=== PATIENT | male | born 1960 | race Hispanic/Latino ===

== ENCOUNTER → 2017-11-29 | Outpatient (CLI) | payer OTHER ==
[~2017-11-29] MED LIST: ASPI-555 PO; CETI10TA57 PO; GABA-531 PO; IBUP-2070 PO; INVOK100TB PO; ISOS30TA6 PO; LOSA1TAB54 PO; METF10004 PO; NITR0.4T SL; PANT40TA25 PO; SERT25TA5 PO; TRAM50TA4 PO
== END | disposition home or self-care (01) ==
LOC: OIH 16:25
PROVIDERS: ATTEND Family Medicine
DX: S09.90XA Unspecified injury of head, initial encounter (principal); X58.XXXA Exposure to other specified factors, initial encounter; Y93.89 Activity, other specified; Y92.89 Other specified places as the place of occurrence of the external cause; Y99.8 Other external cause status
CPT/HCPCS: 70220; 70260

== ENCOUNTER 2018-02-10 13:43 | Inpatient (IN) | payer OTHER ==
[~2018-02-10] VITALS: Ht 172.7 cm; Wt 90.9 kg
[~2018-02-10 13:43] MED LIST changes: -IBUP-2070 PO; -INVOK100TB PO; -ISOS30TA6 PO; -PANT40TA25 PO; -SERT25TA5 PO
[2018-02-10 14:10] LABS: BASOPHILS % (AUTO) 0.7 % (0.0-5.0); EOSINOPHILS % (AUTO) 1.5 % (0.0-8.0); HEMATOCRIT 44.8 % (42-54); LYMPHOCYTES % (AUTO) 6.4 % (21.0-51.0); MEAN CORPUSCULAR HEMOGLOBIN 30.5 pg (27.0-33.0); MEAN CORPUSCULAR HGB CONC 35.6 g/dL (32.0-36.0); MEAN CORPUSCULAR VOLUME 85.7 fL (79-99); MONOCYTES % (AUTO) 6.9 % (3.0-13.0); NEUTROPHILS % (AUTO) 84.5 % (40.0-77.0); RED BLOOD CELL COUNT(AUTO) 5.22 MIL/uL (4.50-6.20); RED CELL DISTRIBUTION WIDTH 15.3 % (11.0-15.5)
[2018-02-10 14:16] LABS: PLATELET COUNT (AUTO) 1084 K/uL (130-400)
[2018-02-10 14:23] LABS: CREATININE 0.8 mg/dL (0.5-1.5); POTASSIUM 3.3 mmol/L (3.5-5.1)
[2018-02-10 14:24] LABS: INR 1.05 (0.85-1.15); PARTIAL THROMBOPLASTIN TIME 28.4 SEC (26.3-35.5)
[2018-02-10 14:37] LABS: BILIRUBIN,TOTAL 0.9 mg/dL (0.2-1.0); TOTAL PROTEIN, SERUM 7.5 g/dL (6.0-8.3)
[2018-02-10 15:02] LABS: APPEARANCE,URINE Cloudy (CLEAR); BILIRUBIN,URINE Negative (NEGATIVE); COLOR,URINE Dark Yellow (YELLOW); GLUCOSE, URINE (UA) >=1000 mg/dL (NEGATIVE); KETONES,URINE 15 mg/dL (NEGATIVE); LEUKOCYTE ESTERASE ,URINE Negative (NEGATIVE); NITRATE,URINE Negative (NEGATIVE); OCCULT BLOOD,URINE Negative (NEGATIVE); PROTEIN,URINE POS 2+ (NEGATIVE)
[2018-02-10 15:16] LABS: BACTERIA,URINE Rare /HPF (None Seen); RBC,URINE None Seen /HPF (0-1); WBC,URINE None Seen /HPF (0-1); YEAST,URINE BUDDING Rare /HPF (None Seen)
[2018-02-10] MEDS ORDERED: MORPHINE SULFATE 4 MG/1ML SYG ONE (16:30)
[2018-02-10] MEDS ORDERED: ACETAMINOPHEN 325 MG TAB ONE (19:43)
[2018-02-10] MEDS ORDERED: MORPHINE SULFATE 2 MG/ML 1ML SYG ONE (19:43)
[2018-02-10 20:59] LABS: CREATINE KINASE MB 1.3 ng/mL (0.5-3.6)
[2018-02-11 00:15] VITALS: BP 124/83
[2018-02-11] MEDS ORDERED: PANT40TA25 PO (00:43)
[2018-02-11] MEDS ORDERED: INVOK100TB PO (00:43)
[2018-02-11] MEDS ORDERED: ISOS30TA6 PO (00:43)
[2018-02-11] MEDS ORDERED: IBUP-2070 PO (00:43)
[2018-02-11] MEDS ORDERED: SERT25TA5 PO (00:43)
[2018-02-11] MEDS ORDERED: PHARMACY COMMUNICATION MISC SCH (01:15)
[2018-02-11 04:00] VITALS: BP 134/86
[2018-02-11] MEDS ORDERED: ONDANSETRON HCL 4 MG/2 ML VIAL IVP PRN (04:00)
[2018-02-11] MEDS ORDERED: ACETAMINOPHEN 325 MG TAB PO PRN (04:00)
[2018-02-11] MEDS ORDERED: POTASSIUM CHLORIDE 10% ELIXIR 20 MEQ/15 ML UDCUP PO PRN (04:00)
[2018-02-11] MEDS ORDERED: DIPHENHYDRAMINE HCL 25 MG CAPSULE PO PRN (04:00)
[2018-02-11] MEDS ORDERED: GUAIFENESIN-DM 200/20 MG 10 ML PO PRN (04:00)
[2018-02-11] MEDS ORDERED: DEXTROSE 50%-WATER 50 ML DISP.SYRIN IV PRN (04:00)
[2018-02-11] MEDS ORDERED: MORPHINE SULFATE 2 MG/ML 1ML SYG IVP PRN ×2 (04:00)
[2018-02-11] MEDS ORDERED: GLUCAGON 1MG KIT 1 MG ML IM PRN (04:00)
[2018-02-11] MEDS ORDERED: POTASSIUM CHLORIDE 20MEQ/100ML 100 ML IV PRN (04:00)
[2018-02-11] MEDS ORDERED: CLONIDINE HCL 0.1 MG TABLET PO PRN (04:00)
[2018-02-11] MEDS ORDERED: NITROGLYCERIN 0.4 MG SL TAB SL PRN (04:00)
[2018-02-11] MEDS ORDERED: DiphenhydrAMINE HCL 50 MG/ML VIAL IM PRN (04:00)
[2018-02-11] MEDS ORDERED: LACTULOSE 20 GM/30 ML UDCUP PO PRN (04:00)
[2018-02-11] MEDS ORDERED: LIDOCAINE HCL-MPF 1% 2ML VIAL IVP PRN (04:00)
[2018-02-11] MEDS ORDERED: ZOLPIDEM TARTRATE 5 MG TAB PO PRN (04:00)
[2018-02-11 05:17] LABS: HEMATOCRIT 40.4 % (42-54); MEAN CORPUSCULAR HEMOGLOBIN 30.4 pg (27.0-33.0); MEAN CORPUSCULAR HGB CONC 35.2 g/dL (32.0-36.0); MEAN CORPUSCULAR VOLUME 86.2 fL (79-99); RED BLOOD CELL COUNT(AUTO) 4.68 MIL/uL (4.50-6.20); RED CELL DISTRIBUTION WIDTH 15.3 % (11.0-15.5); WHITE BLOOD COUNT (AUTO) 8.2 K/uL (4.8-10.8)
[2018-02-11 05:20] LABS: PLATELET COUNT (AUTO) 933 K/uL (130-400)
[2018-02-11 05:43] LABS: CARBON DIOXIDE 27 mmol/L (21-32); CHLORIDE 104 mmol/L (101-111); CREATINE KINASE MB 1.5 ng/mL (0.5-3.6); CREATINE KINASE, TOTAL 81 U/L (21-232); CREATININE 0.7 mg/dL (0.5-1.5); GLOMERULAR FILTR. RATE CALC 123 mL/min (>60); GLUCOSE,RANDOM 198 mg/dL (70-105); MYOGLOBIN 36 ng/mL (10-92); POTASSIUM 3.2 mmol/L (3.5-5.1); SODIUM SERUM 138 mmol/L (136-145); TROPONIN I < 0.04 ng/mL (0.00-0.06); UREA NITROGEN, BLOOD 15 mg/dL (7-18)
[2018-02-11] MEDS: TRAMADOL HCL 50 MG TABLET PO SCH ×3 (06:45→18:19)
[2018-02-11 08:00] VITALS: BP 131/76
[2018-02-11] MEDS: METFORMIN HCL 500 MG TABLET PO SCH (08:00)
[2018-02-11] MEDS: INSULIN HUMULIN R 100 UNIT/ML 3ML SQ SCH ×4 (08:02→21:21)
[2018-02-11] MEDS: SERTRALINE HCL 50 MG TABLET PO SCH (09:00)
[2018-02-11] MEDS: ASPIRIN 325MG EC TAB 325 MG TABLET.DR PO SCH (09:00)
[2018-02-11] MEDS: GABAPENTIN 300 MG CAPSULE PO SCH ×3 (09:00→21:22)
[2018-02-11] MEDS ORDERED: CETIRIZINE HCL 5 MG TABLET PO PRN (09:00)
[2018-02-11] MEDS: PANTOPRAZOLE SODIUM 40 MG TABLET.DR PO SCH (09:00)
[2018-02-11] MEDS: ISOSORBIDE MONO 30MG TAB SR PO SCH (09:00)
[2018-02-11] MEDS: **HM** INVOKANA 100MG PO SCH (09:00)
[2018-02-11] MEDS: LOSARTAN/HYDROCHLOROTHIAZIDE 50-12.5MG TABLET PO SCH (09:00)
[2018-02-11] MEDS: KETOROLAC TROMETHAMINE 30MG/ML IV PRN ×2 (11:56→21:23)
[2018-02-11 12:00] VITALS: BP 110/68
[2018-02-11 16:45] VITALS: BP 146/96
[2018-02-11 19:00] VITALS: BP 139/86
[2018-02-12] VITALS (7 sets, daily range): BP systolic 106–149; BP diastolic 60–90
[2018-02-12] MEDS: TRAMADOL HCL 50 MG TABLET PO SCH ×4 (00:45→18:45)
[2018-02-12] MEDS: KETOROLAC TROMETHAMINE 30MG/ML IV PRN (04:23)
[2018-02-12 05:34] LABS: BASOPHILS % (AUTO) 0.4 % (0.0-5.0); EOSINOPHILS % (AUTO) 2.4 % (0.0-8.0); HEMATOCRIT 39.2 % (42-54); LYMPHOCYTES % (AUTO) 25.3 % (21.0-51.0); MEAN CORPUSCULAR HEMOGLOBIN 30.3 pg (27.0-33.0); MEAN CORPUSCULAR HGB CONC 35.1 g/dL (32.0-36.0); MEAN CORPUSCULAR VOLUME 86.4 fL (79-99); MONOCYTES % (AUTO) 12.1 % (3.0-13.0); NEUTROPHILS % (AUTO) 59.8 % (40.0-77.0); NUCLEATED RED BLOOD CELLS 0.1 % (0.0-0.19); RED BLOOD CELL COUNT(AUTO) 4.54 MIL/uL (4.50-6.20); RED CELL DISTRIBUTION WIDTH 14.9 % (11.0-15.5); WHITE BLOOD COUNT (AUTO) 8.3 K/uL (4.8-10.8)
[2018-02-12 05:35] LABS: PLATELET COUNT (AUTO) 951 K/uL (130-400)
[2018-02-12 06:00] LABS: ALBUMIN 3.3 g/dL (3.5-5.0); BILIRUBIN,TOTAL 0.5 mg/dL (0.2-1.0); CREATININE 0.8 mg/dL (0.5-1.5); POTASSIUM 3.9 mmol/L (3.5-5.1); TOTAL PROTEIN, SERUM 6.7 g/dL (6.0-8.3)
[2018-02-12] MEDS: BISACODYL 5 MG TABLET.DR PO PRN ×2 (06:08→17:35)
[2018-02-12] MEDS: INSULIN HUMULIN R 100 UNIT/ML 3ML SQ SCH ×4 (06:10→21:44)
[2018-02-12] MEDS: **HM** INVOKANA 100MG PO SCH (09:00)
[2018-02-12] MEDS: ISOSORBIDE MONO 30MG TAB SR PO SCH (09:26)
[2018-02-12] MEDS: SERTRALINE HCL 50 MG TABLET PO SCH (09:26)
[2018-02-12] MEDS: PANTOPRAZOLE SODIUM 40 MG TABLET.DR PO SCH (09:26)
[2018-02-12] MEDS: LOSARTAN/HYDROCHLOROTHIAZIDE 50-12.5MG TABLET PO SCH (09:27)
[2018-02-12] MEDS: ASPIRIN 325MG EC TAB 325 MG TABLET.DR PO SCH (09:27)
[2018-02-12] MEDS: GABAPENTIN 300 MG CAPSULE PO SCH ×3 (09:27→21:41)
[2018-02-12] MEDS: ACETAMINOPHEN 325 MG TAB PO PRN (11:29)
[2018-02-12] MEDS ORDERED: ONDANSETRON HCL MDV 20ML 2 MG/ML VIAL ONE (17:33)
[2018-02-13] VITALS (21 sets, daily range): BP systolic 106–156; BP diastolic 66–100
[2018-02-13] MEDS: TRAMADOL HCL 50 MG TABLET PO SCH ×3 (01:38→16:06)
[2018-02-13] MEDS: INSULIN HUMULIN R 100 UNIT/ML 3ML SQ SCH ×4 (07:01→21:30)
[2018-02-13] MEDS: GABAPENTIN 300 MG CAPSULE PO SCH ×4 (09:00→20:26)
[2018-02-13] MEDS: **HM** INVOKANA 100MG PO SCH (09:00)
[2018-02-13] MEDS ORDERED: PROPOFOL 10 MG/ML 20ML VIAL IV ONE (09:19)
[2018-02-13 11:20] LABS: INR 1.05 (0.85-1.15)
[2018-02-13] MEDS ORDERED: MIDAZOLAM HCL 1 MG/ML 2ML VIAL ONE (15:02)
[2018-02-13] MEDS ORDERED: FENTANYL CITRATE PF 50 MCG/1 ML 2ML VIAL ONE (15:02)
[2018-02-13] MEDS: ACETAMINOPHEN 325 MG TAB PO PRN (16:05)
[2018-02-13] MEDS: ASPIRIN 325MG EC TAB 325 MG TABLET.DR PO SCH (16:06)
[2018-02-13] MEDS: SERTRALINE HCL 50 MG TABLET PO SCH (16:07)
[2018-02-13] MEDS: LOSARTAN/HYDROCHLOROTHIAZIDE 50-12.5MG TABLET PO SCH (16:07)
[2018-02-13] MEDS: PANTOPRAZOLE SODIUM 40 MG TABLET.DR PO SCH (16:07)
[2018-02-13] MEDS: ISOSORBIDE MONO 30MG TAB SR PO SCH (16:08)
[2018-02-13] MEDS ORDERED: PHARMACY COMMUNICATION MISC SCH (19:00)
[2018-02-13] MEDS ORDERED: HYDROXYUREA 500 MG CAP PO SCH (20:00)
[2018-02-13] MEDS ORDERED: ONDANSETRON HCL MDV 20ML 2 MG/ML VIAL ONE (20:33)
[2018-02-14] VITALS: BP 118/71
[2018-02-14] MEDS: TRAMADOL HCL 50 MG TABLET PO SCH ×3 (00:36→13:01)
[2018-02-14 04:00] VITALS: BP 119/76
[2018-02-14 04:54] LABS: BASOPHILS % (AUTO) 0.9 % (0.0-5.0); EOSINOPHILS % (AUTO) 2.8 % (0.0-8.0); HEMATOCRIT 38.2 % (42-54); LYMPHOCYTES % (AUTO) 22.7 % (21.0-51.0); MEAN CORPUSCULAR HEMOGLOBIN 30.4 pg (27.0-33.0); MEAN CORPUSCULAR HGB CONC 35.3 g/dL (32.0-36.0); MEAN CORPUSCULAR VOLUME 86.2 fL (79-99); MONOCYTES % (AUTO) 8.2 % (3.0-13.0); NEUTROPHILS % (AUTO) 65.4 % (40.0-77.0); RED BLOOD CELL COUNT(AUTO) 4.43 MIL/uL (4.50-6.20); WHITE BLOOD COUNT (AUTO) 8.8 K/uL (4.8-10.8)
[2018-02-14 05:09] LABS: ALBUMIN 3.2 g/dL (3.5-5.0); BILIRUBIN,TOTAL 0.5 mg/dL (0.2-1.0); CREATININE 0.7 mg/dL (0.5-1.5); POTASSIUM 3.4 mmol/L (3.5-5.1); TOTAL PROTEIN, SERUM 6.7 g/dL (6.0-8.3)
[2018-02-14 05:12] LABS: PLATELET COUNT (AUTO) 1005 K/uL (130-400)
[2018-02-14] MEDS: POTASSIUM CHLORIDE 20 MEQ ERTAB PO PRN ×2 (06:16→08:14)
[2018-02-14] MEDS: INSULIN HUMULIN R 100 UNIT/ML 3ML SQ SCH ×2 (06:18→11:30)
[2018-02-14] MEDS: GABAPENTIN 300 MG CAPSULE PO SCH ×2 (08:14→13:02)
[2018-02-14] MEDS: SERTRALINE HCL 50 MG TABLET PO SCH (08:15)
[2018-02-14] MEDS: LOSARTAN/HYDROCHLOROTHIAZIDE 50-12.5MG TABLET PO SCH (08:15)
[2018-02-14] MEDS: PANTOPRAZOLE SODIUM 40 MG TABLET.DR PO SCH (08:15)
[2018-02-14] MEDS: ISOSORBIDE MONO 30MG TAB SR PO SCH (08:15)
[2018-02-14] MEDS: ACETAMINOPHEN 325 MG TAB PO PRN (08:16)
[2018-02-14] MEDS: **HM** INVOKANA 100MG PO SCH (08:17)
[2018-02-14] MEDS: METFORMIN HCL 500 MG TABLET PO SCH (08:19)
[2018-02-14 08:25] VITALS: BP 111/73
[2018-02-14] MEDS ORDERED: FOLIC ACID 1 MG TABLET PO SCH (09:00)
[2018-02-14] MEDS ORDERED: ASPIRIN 81MG TAB.CHEW PO SCH (09:00)
[2018-02-14 12:00] VITALS: BP 110/70
[2018-02-14 16:00] VITALS: BP 129/69
== END 2018-02-14 17:42 | disposition home or self-care (01) | DRG 815 ==
LOC: EDH 13:43 → OBSVTOIN 17:32 → EDHIP 17:32 → 4BH 02-11 00:18
PROVIDERS: ADMIT Family Medicine; ATTEND Family Medicine
PROC: 07DR3ZX Extraction of Iliac Bone Marrow, Percutaneous Approach, Diagnostic (ICD-10-PCS; principal; 2018-02-13)
PROC: 0DB68ZX Excision of Stomach, Via Natural or Artificial Opening Endoscopic, Diagnostic (ICD-10-PCS; 2018-02-13)
DX: D47.3 Essential (hemorrhagic) thrombocythemia (principal); K56.7 Ileus, unspecified; E11.9 Type 2 diabetes mellitus without complications; I10 Essential (primary) hypertension; K80.20 Calculus of gallbladder without cholecystitis without obstruction; E78.5 Hyperlipidemia, unspecified; K31.89 Other diseases of stomach and duodenum; I25.10 Atherosclerotic heart disease of native coronary artery without angina pectoris; K21.9 Gastro-esophageal reflux disease without esophagitis; Z87.442 Personal history of urinary calculi
CPT/HCPCS: 36415; 38222; 71045; 74176; 77012; 78226; 80048; 80053; 81001; 82550; 82553; 82948; 83874; 84484; 85025; 85027; 85097; 85610; 85730; 87040; 87088; 87804; 88184; 88185; 88237; 88262; 88305; 88311; 88312; 88313; 88342; 88377; 93005; A9537; J1815; J1885; J2250; J2270; J2704; J3010; J3480; J3490; J7030

== ENCOUNTER 2018-04-12 21:30 | Emergency (ER) | payer OTHER ==
[~2018-04-12 21:30] MED LIST changes: +IBUP-2070 PO; +INVOK100TB PO; +ISOS30TA6 PO; +PANT40TA25 PO; +SERT25TA5 PO
[2018-04-12 22:27] LABS: BASOPHILS % (AUTO) 0.7 % (0.0-5.0); EOSINOPHILS % (AUTO) 1.4 % (0.0-8.0); HEMATOCRIT 43.8 % (42-54); MEAN CORPUSCULAR HEMOGLOBIN 34.6 pg (27.0-33.0); MEAN CORPUSCULAR HGB CONC 35.5 g/dL (32.0-36.0); MEAN CORPUSCULAR VOLUME 97.6 fL (79-99); NEUTROPHILS % (AUTO) 56.9 % (40.0-77.0); RED BLOOD CELL COUNT(AUTO) 4.49 MIL/uL (4.50-6.20); RED CELL DISTRIBUTION WIDTH 25.3 % (11.0-15.5); WHITE BLOOD COUNT (AUTO) 7.8 K/uL (4.8-10.8)
[2018-04-12 22:36] LABS: APPEARANCE,URINE Clear (CLEAR); BILIRUBIN,URINE Negative (NEGATIVE); COLOR,URINE Yellow (YELLOW); GLUCOSE, URINE (UA) >=1000 mg/dL (NEGATIVE); KETONES,URINE Negative (NEGATIVE); LEUKOCYTE ESTERASE ,URINE Negative (NEGATIVE); NITRATE,URINE Negative (NEGATIVE); OCCULT BLOOD,URINE Negative (NEGATIVE); PROTEIN,URINE Negative (NEGATIVE)
[2018-04-12 22:37] LABS: PLATELET COUNT (AUTO) 814 K/uL (130-400)
[2018-04-12 22:42] LABS: CREATININE 0.7 mg/dL (0.5-1.5); POTASSIUM 3.3 mmol/L (3.5-5.1)
[2018-04-12] MEDS ORDERED: MORPHINE SULFATE 4 MG/1ML SYG ONE (22:44)
[2018-04-12 22:46] LABS: ALBUMIN 4.2 g/dL (3.5-5.0); BILIRUBIN,TOTAL 0.8 mg/dL (0.2-1.0); TOTAL PROTEIN, SERUM 7.6 g/dL (6.0-8.3)
[2018-04-12] MEDS ORDERED: IOPAMIDOL-370 75 ML VIAL IV ONE (22:58)
[2018-04-12 23:10] LABS: BACTERIA,URINE None Seen /HPF (None Seen); RBC,URINE None Seen /HPF (0-1); SQUAMOUS EPITHELIAL CELL,UR Moderate /HPF (0-2); WBC,URINE None Seen /HPF (0-1)
[2018-04-13] MEDS ORDERED: POTASSIUM CHLORIDE 20 MEQ ERTAB PO ONE (01:04)
== END 2018-04-13 01:17 | disposition home or self-care (01) ==
LOC: EDH 21:30
DX: K80.20 Calculus of gallbladder without cholecystitis without obstruction (principal); E87.6 Hypokalemia; K57.90 Diverticulosis of intestine, part unspecified, without perforation or abscess without bleeding; I10 Essential (primary) hypertension; E78.5 Hyperlipidemia, unspecified; K21.9 Gastro-esophageal reflux disease without esophagitis; E11.9 Type 2 diabetes mellitus without complications; I25.10 Atherosclerotic heart disease of native coronary artery without angina pectoris; Z95.0 Presence of cardiac pacemaker; Z79.4 Long term (current) use of insulin
CPT/HCPCS: 36415; 74177; 80053; 81001; 82150; 83690; 85025; 93005; 96374; 99285; J2270; Q9967

== ENCOUNTER 2018-05-30 22:35 | Emergency (ER) | payer OTHER ==
[2018-05-30] MEDS ORDERED: LIDOCAINE/PRILOCAINE CREAM 5GM TUBE TP ONE (23:04)
== END 2018-05-30 23:18 | disposition home or self-care (01) ==
LOC: EDH 22:35
DX: L30.9 Dermatitis, unspecified (principal); K21.9 Gastro-esophageal reflux disease without esophagitis; I10 Essential (primary) hypertension; I25.10 Atherosclerotic heart disease of native coronary artery without angina pectoris; E78.5 Hyperlipidemia, unspecified; Z95.0 Presence of cardiac pacemaker
CPT/HCPCS: 99282; J3490

== ENCOUNTER 2018-09-01 16:10 | Emergency (ER) | payer OTHER ==
[~2018-09-01 16:10] MED LIST changes: +FOLI1TAB15 PO; -GABA-531 PO; +GLIP10TA9 PO; +HYDR500C2 PO; -IBUP-2070 PO; -LOSA1TAB54 PO; +LOSA50TA25 PO; +METF-446 PO; -METF10004 PO; -SERT25TA5 PO; -TRAM50TA4 PO
[2018-09-01] MEDS ORDERED: METO-408 PO (16:12)
[2018-09-01] MEDS ORDERED: AZIT250T9 PO (16:12)
[2018-09-01 16:49] LABS: BASOPHILS % (AUTO) 0.9 % (0.0-5.0); HEMATOCRIT 44.7 % (42-54); LYMPHOCYTES % (AUTO) 18.7 % (21.0-51.0); MEAN CORPUSCULAR HEMOGLOBIN 35.1 pg (27.0-33.0); MEAN CORPUSCULAR HGB CONC 34.7 g/dL (32.0-36.0); MEAN CORPUSCULAR VOLUME 101.2 fL (79-99); MONOCYTES % (AUTO) 7.5 % (3.0-13.0); NEUTROPHILS % (AUTO) 71.9 % (40.0-77.0); RED BLOOD CELL COUNT(AUTO) 4.42 MIL/uL (4.50-6.20); RED CELL DISTRIBUTION WIDTH 14.5 % (11.0-15.5); WHITE BLOOD COUNT (AUTO) 11.9 K/uL (4.8-10.8)
[2018-09-01 16:54] LABS: PLATELET COUNT (AUTO) 874 K/uL (130-400)
[2018-09-01 17:01] LABS: CREATININE 0.8 mg/dL (0.5-1.5); POTASSIUM 4.3 mmol/L (3.5-5.1)
[2018-09-01 17:03] LABS: APPEARANCE,URINE Clear (CLEAR); BILIRUBIN,URINE Negative (NEGATIVE); COLOR,URINE Yellow (YELLOW); GLUCOSE, URINE (UA) >=1000 mg/dL (NEGATIVE); KETONES,URINE Negative (NEGATIVE); LEUKOCYTE ESTERASE ,URINE Negative (NEGATIVE); NITRATE,URINE Negative (NEGATIVE); OCCULT BLOOD,URINE Negative (NEGATIVE); PH,URINE 5.5 (5.0-8.0); PROTEIN,URINE Negative (NEGATIVE); UROBILINOGEN,URINE 0.2 mg/dL (0.2-1.0)
[2018-09-01 17:06] LABS: ALBUMIN 3.7 g/dL (3.5-5.0); BILIRUBIN,TOTAL 0.5 mg/dL (0.2-1.0); TOTAL PROTEIN, SERUM 7.6 g/dL (6.0-8.3)
[2018-09-01 17:13] LABS: BACTERIA,URINE Rare /HPF (None Seen); RBC,URINE 0-1 /HPF (0-1); SQUAMOUS EPITHELIAL CELL,UR Rare /HPF (0-2); WBC,URINE 0-1 /HPF (0-1); YEAST,URINE BUDDING Rare /HPF (None Seen)
[2018-09-01] MEDS ORDERED: ONDANSETRON HCL 4 MG/2 ML VIAL ONE (17:26)
[2018-09-01] MEDS ORDERED: MORPHINE SULFATE 4 MG/1ML SYG ONE (17:27)
== END 2018-09-01 19:51 | disposition home or self-care (01) ==
LOC: EDH 16:10
DX: N50.812 Left testicular pain (principal); D47.3 Essential (hemorrhagic) thrombocythemia; I25.10 Atherosclerotic heart disease of native coronary artery without angina pectoris; E11.9 Type 2 diabetes mellitus without complications; K21.9 Gastro-esophageal reflux disease without esophagitis; E78.5 Hyperlipidemia, unspecified; I10 Essential (primary) hypertension; Z79.4 Long term (current) use of insulin; Z87.442 Personal history of urinary calculi
CPT/HCPCS: 36415; 74176; 76870; 80053; 81001; 85025; 96374; 96375; 99285; J2270; J2405

== ENCOUNTER → 2018-10-30 | Outpatient (CLI) | payer OTHER ==
[~2018-10-30] MED LIST changes: +AZIT250T9 PO
== END | disposition home or self-care (01) ==
LOC: OIH 15:20
PROVIDERS: ATTEND Family Medicine
DX: K80.20 Calculus of gallbladder without cholecystitis without obstruction (principal)
CPT/HCPCS: 72100

== ENCOUNTER → 2018-12-26 | Outpatient (CLI) | payer OTHER ==
[~2018-12-26] MED LIST changes: -LOSA50TA25 PO; +LOSA50TA64 PO
== END | disposition home or self-care (01) ==
LOC: RAH 12:48
PROVIDERS: ATTEND Internal Medicine Cardiovascular Disease
DX: R51 Headache (principal)
CPT/HCPCS: 70450

== ENCOUNTER → 2019-09-04 | Outpatient (CLI) | payer OTHER ==
[~2019-09-04] MED LIST changes: +IOHEXOL 350 MG/ML 100ML INFUS..BTL IV ONE
[2019-09-04 14:10] LABS: CREATININE 0.8 mg/dL (0.5-1.5)
== END | disposition home or self-care (01) ==
LOC: RAH 13:22
PROVIDERS: ATTEND Family Medicine
DX: I26.02 Saddle embolus of pulmonary artery with acute cor pulmonale (principal); K80.20 Calculus of gallbladder without cholecystitis without obstruction; I51.7 Cardiomegaly
CPT/HCPCS: 36415; 71275; 82565; 84520; Q9967

== ENCOUNTER → 2019-09-16 | Outpatient (CLI) | payer OTHER ==
[~2019-09-16] MED LIST changes: -IOHEXOL 350 MG/ML 100ML INFUS..BTL IV ONE
== END | disposition home or self-care (01) ==
LOC: RAH 08:33
PROVIDERS: ATTEND Family Medicine
DX: K80.20 Calculus of gallbladder without cholecystitis without obstruction (principal); K76.89 Other specified diseases of liver
CPT/HCPCS: 76700

== ENCOUNTER 2020-03-23 10:46 | Emergency (ER) | payer OTHER ==
[2020-03-23] MEDS ORDERED: DIAZEPAM 5 MG TABLET ONE (11:08)
[2020-03-23] MEDS ORDERED: LIDOCAINE 5% TOPICAL PATCH TP ONE (11:08)
== END 2020-03-23 12:14 | disposition home or self-care (01) ==
LOC: EDH 10:46
DX: M62.838 Other muscle spasm (principal); I25.10 Atherosclerotic heart disease of native coronary artery without angina pectoris; E11.9 Type 2 diabetes mellitus without complications; K21.9 Gastro-esophageal reflux disease without esophagitis; I10 Essential (primary) hypertension; E78.5 Hyperlipidemia, unspecified; Z87.891 Personal history of nicotine dependence

== ENCOUNTER 2020-12-09 09:16 | Emergency (ER) | payer OTHER ==
[~2020-12-09 09:16] MED LIST changes: -ASPI-555 PO; +ASPI-556 PO; -ISOS30TA6 PO; +ISOS30TA92 PO; -PANT40TA25 PO; +PANT40TA54 PO
[2020-12-09] MEDS ORDERED: DiphenhydrAMINE HCL 50 MG/ML VIAL ONE (09:33)
[2020-12-09] MEDS ORDERED: 0.9%NACL 1000ML 1,000 ML IV ONE (09:34)
[2020-12-09] MEDS ORDERED: KETOROLAC 15MG/ML VIAL (15MG/ML) ONE (09:34)
[2020-12-09 09:44] LABS: BASOPHILS % (AUTO) 0.8 % (0.0-5.0); EOSINOPHILS % (AUTO) 1.2 % (0.0-8.0); HEMATOCRIT 39.9 % (42-54); LYMPHOCYTES % (AUTO) 23.6 % (21.0-51.0); MEAN CORPUSCULAR HEMOGLOBIN 41.5 pg (27.0-33.0); MEAN CORPUSCULAR HGB CONC 36.1 g/dL (32.0-36.0); MONOCYTES % (AUTO) 9.3 % (3.0-13.0); NEUTROPHILS % (AUTO) 64.9 % (40.0-77.0); PLATELET COUNT (AUTO) 263 K/uL (130-400); RED BLOOD CELL COUNT(AUTO) 3.47 MIL/uL (4.50-6.20); RED CELL DISTRIBUTION WIDTH 13.1 % (11.0-15.5)
[2020-12-09 10:03] LABS: ALBUMIN 3.9 g/dL (3.5-5.0); BILIRUBIN,TOTAL 0.8 mg/dL (0.2-1.0); CREATININE 0.7 mg/dL (0.5-1.5); TOTAL PROTEIN, SERUM 7.3 g/dL (6.0-8.3)
[2020-12-09] MEDS ORDERED: ASPIRIN 325 MG TABLET ONE (11:35)
== END 2020-12-09 11:49 | disposition home or self-care (01) ==
LOC: EDH 09:16
DX: R07.89 Other chest pain (principal); L29.9 Pruritus, unspecified; Z20.828 Contact with and (suspected) exposure to other viral communicable diseases; I25.10 Atherosclerotic heart disease of native coronary artery without angina pectoris; K21.9 Gastro-esophageal reflux disease without esophagitis; E11.9 Type 2 diabetes mellitus without complications; E78.5 Hyperlipidemia, unspecified; I10 Essential (primary) hypertension; E86.0 Dehydration
CPT/HCPCS: 36415; 71045; 80053; 83880; 84484; 85025; 87426; 87804 ×2; 93005; 96361; 96374; 96375; 99285; J1200; J1885; J7030; U0003

== ENCOUNTER 2021-10-13 10:38 | Inpatient (IN) | payer OTHER ==
[~2021-10-13] VITALS: Ht 172.7 cm; Wt 84.9 kg
[2021-10-13 10:56] LABS: BASOPHILS % (AUTO) 0.4 % (0.0-5.0); EOSINOPHILS % (AUTO) 0.1 % (0.0-8.0); HEMATOCRIT 41.3 % (42-54); LYMPHOCYTES % (AUTO) 13.2 % (21.0-51.0); MEAN CORPUSCULAR HEMOGLOBIN 37.2 pg (27.0-33.0); MEAN CORPUSCULAR HGB CONC 35.4 g/dL (32.0-36.0); MEAN CORPUSCULAR VOLUME 105.4 fL (79-99); MONOCYTES % (AUTO) 9.7 % (3.0-13.0); NEUTROPHILS % (AUTO) 76.2 % (40.0-77.0); PLATELET COUNT (AUTO) 332 K/uL (130-400); RED BLOOD CELL COUNT(AUTO) 3.92 MIL/uL (4.50-6.20); RED CELL DISTRIBUTION WIDTH 13.5 % (11.0-15.5)
[2021-10-13 11:05] LABS: CREATININE 0.8 mg/dL (0.5-1.5); POTASSIUM 3.9 mmol/L (3.5-5.1)
[2021-10-13 11:16] LABS: BILIRUBIN,TOTAL 1.4 mg/dL (0.2-1.0); TOTAL PROTEIN, SERUM 7.9 g/dL (6.0-8.3)
[2021-10-13 11:54] LABS: B-TYPE NATRIURETIC PEPTIDE 41 pg/mL (0-100)
[2021-10-13] MEDS ORDERED: MORPHINE 4 MG SYG IV ONE (13:00)
[2021-10-13] MEDS ORDERED: ORPHENADRINE CITRATE 30 MG/ML ML IV ONE (13:00)
[2021-10-13] MEDS ORDERED: LIDOCAINE 5% TOPICAL PATCH TP ONE (13:00)
[2021-10-13] MEDS: HYDROCODONE/ACETAMINOPHEN 5/325 MG TAB PO PRN (16:40)
[2021-10-13 17:16] LABS: AMPHET/METH SCREEN,URINE NEGATIVE (NEGATIVE); BARBITURATE SCREEN, URINE NEGATIVE (NEGATIVE); BENZODIAZEPINES SCREEN,URINE NEGATIVE (NEGATIVE); CANNABINOID SCREEN,URINE NEGATIVE (NEGATIVE); COCAINE SCREEN,URINE NEGATIVE (NEGATIVE); OPIATE SCREEN,URINE POSITIVE (NEGATIVE); PHENCYCLIDINE SCREEN,URINE NEGATIVE (NEGATIVE)
[2021-10-13 21:20] VITALS: BP 140/91
[2021-10-13 23:15] VITALS: BP 149/90
[2021-10-14 03:49] VITALS: BP 146/79
[2021-10-14] MEDS: HYDROMORPHONE 0.5 MG SYG (0.5MG/0.5ML) IVP PRN ×2 (07:36→13:33)
[2021-10-14 08:00] VITALS: BP 150/88
[2021-10-14] MEDS: INSULIN HUMULIN R 100 UNIT/ML 3ML SQ SCH ×3 (11:30→20:01)
[2021-10-14 12:00] VITALS: BP_SYST 144; BP_SYST 146; BP_DIAS 88
[2021-10-14] MEDS ORDERED: HYDR500C2 PO (12:01)
[2021-10-14] MEDS ORDERED: METO50TA18 PO (12:01)
[2021-10-14] MEDS ORDERED: CETI10TA57 PO (12:01)
[2021-10-14] MEDS ORDERED: MULT-1367 PO (12:01)
[2021-10-14] MEDS ORDERED: ATOR10 PO (12:01)
[2021-10-14] MEDS ORDERED: GLIP10TA9 PO (12:01)
[2021-10-14] MEDS ORDERED: LINA145C PO (12:01)
[2021-10-14] MEDS ORDERED: CYAN25002 PO (12:01)
[2021-10-14] MEDS ORDERED: HYDRALAZINE 20MG/ML VIAL IV PRN (13:30)
[2021-10-14 16:00] VITALS: BP 144/88
[2021-10-14] MEDS ORDERED: DIAZEPAM 5 MG TABLET PO PRN (16:00)
[2021-10-14] MEDS: HYDROCODONE/ACETAMINOPHEN 5/325 MG TAB PO PRN (18:22)
[2021-10-14] MEDS: ATORVASTATIN 20 MG TABLET PO SCH (20:00)
[2021-10-14 20:07] VITALS: BP 154/96
[2021-10-14 23:11] VITALS: BP 149/93
[2021-10-14] MEDS: HYDROMORPHONE 1 MG INJ IVP PRN (23:16)
[2021-10-15 04:04] VITALS: BP 156/87
[2021-10-15] MEDS: INSULIN HUMULIN R 100 UNIT/ML 3ML SQ SCH ×4 (06:14→20:38)
[2021-10-15] MEDS: HYDROCODONE/ACETAMINOPHEN 5/325 MG TAB PO PRN ×2 (06:40→23:43)
[2021-10-15] MEDS: HYDROMORPHONE 1 MG INJ IVP PRN ×2 (07:38→16:57)
[2021-10-15 08:00] VITALS: BP 141/93
[2021-10-15 09:09] LABS: CREATININE 0.6 mg/dL (0.5-1.5); POTASSIUM 3.7 mmol/L (3.5-5.1)
[2021-10-15] MEDS: PANTOPRAZOLE 40 MG/VIAL IV SCH (09:31)
[2021-10-15] MEDS: CETIRIZINE HCL 5 MG TABLET PO SCH (09:31)
[2021-10-15] MEDS: FOLIC ACID 1 MG TABLET PO SCH (09:32)
[2021-10-15] MEDS: METOPROLOL SUCCINATE 50 MG TAB.SR.24H PO SCH (09:32)
[2021-10-15] MEDS: CYANOCOBALAMIN (VITAMIN B-12) 1,000 MCG TABLET PO SCH (09:32)
[2021-10-15] MEDS: MULTIVITAMIN TABLET PO SCH (09:32)
[2021-10-15] MEDS: ENOXAPARIN SODIUM 40 MG/0.4 ML SYRINGE SQ SCH (09:33)
[2021-10-15 12:00] VITALS: BP 154/94
[2021-10-15 16:00] VITALS: BP 146/89
[2021-10-15 20:00] VITALS: BP 147/90
[2021-10-15] MEDS: ATORVASTATIN 20 MG TABLET PO SCH (20:32)
[2021-10-16] VITALS: BP 147/78
[2021-10-16] MEDS: HYDROMORPHONE 1 MG INJ IVP PRN ×2 (02:57→20:12)
[2021-10-16 04:00] VITALS: BP 145/85
[2021-10-16 04:50] LABS: HEMATOCRIT 38.1 % (42-54); MEAN CORPUSCULAR HEMOGLOBIN 36.8 pg (27.0-33.0); MEAN CORPUSCULAR HGB CONC 34.9 g/dL (32.0-36.0); MEAN CORPUSCULAR VOLUME 105.5 fL (79-99); RED BLOOD CELL COUNT(AUTO) 3.61 MIL/uL (4.50-6.20); RED CELL DISTRIBUTION WIDTH 13.2 % (11.0-15.5); WHITE BLOOD COUNT (AUTO) 8.3 K/uL (4.8-10.8)
[2021-10-16] MEDS: INSULIN HUMULIN R 100 UNIT/ML 3ML SQ SCH ×5 (07:30→20:26)
[2021-10-16 08:00] VITALS: BP 146/68
[2021-10-16] MEDS: FOLIC ACID 1 MG TABLET PO SCH (08:42)
[2021-10-16] MEDS: CYANOCOBALAMIN (VITAMIN B-12) 1,000 MCG TABLET PO SCH (08:44)
[2021-10-16] MEDS: MULTIVITAMIN TABLET PO SCH (08:44)
[2021-10-16] MEDS: CETIRIZINE HCL 5 MG TABLET PO SCH (08:44)
[2021-10-16] MEDS: PANTOPRAZOLE 40 MG/VIAL IV SCH (08:44)
[2021-10-16] MEDS: ENOXAPARIN SODIUM 40 MG/0.4 ML SYRINGE SQ SCH (08:45)
[2021-10-16] MEDS: METOPROLOL SUCCINATE 50 MG TAB.SR.24H PO SCH (08:45)
[2021-10-16 11:49] VITALS: BP 137/83
[2021-10-16] MEDS: HYDROCODONE/ACETAMINOPHEN 5/325 MG TAB PO PRN (12:05)
[2021-10-16 16:00] VITALS: BP 148/84
[2021-10-16] MEDS: ATORVASTATIN 20 MG TABLET PO SCH (20:11)
[2021-10-16 20:16] VITALS: BP 140/71
[2021-10-17 00:20] VITALS: BP 145/85
[2021-10-17] MEDS: HYDROMORPHONE 1 MG INJ IVP PRN ×2 (01:11→20:38)
[2021-10-17 04:24] VITALS: BP 128/84
[2021-10-17] MEDS: INSULIN HUMULIN R 100 UNIT/ML 3ML SQ SCH ×4 (06:40→20:40)
[2021-10-17 08:00] VITALS: BP 155/98
[2021-10-17] MEDS: FOLIC ACID 1 MG TABLET PO SCH (09:27)
[2021-10-17] MEDS: METOPROLOL SUCCINATE 50 MG TAB.SR.24H PO SCH (09:27)
[2021-10-17] MEDS: CYANOCOBALAMIN (VITAMIN B-12) 1,000 MCG TABLET PO SCH (09:28)
[2021-10-17] MEDS: MULTIVITAMIN TABLET PO SCH (09:29)
[2021-10-17] MEDS: ENOXAPARIN SODIUM 40 MG/0.4 ML SYRINGE SQ SCH (09:29)
[2021-10-17] MEDS: PANTOPRAZOLE 40 MG/VIAL IV SCH (09:29)
[2021-10-17] MEDS: CETIRIZINE HCL 5 MG TABLET PO SCH (09:29)
[2021-10-17 12:00] VITALS: BP 134/79
[2021-10-17] MEDS: HYDROCODONE/ACETAMINOPHEN 5/325 MG TAB PO PRN (12:33)
[2021-10-17 16:00] VITALS: BP 137/77
[2021-10-17] MEDS ORDERED: GLIPIZIDE XL 5MG TAB PO SCH (17:00)
[2021-10-17 20:24] VITALS: BP 141/86
[2021-10-17] MEDS: ATORVASTATIN 20 MG TABLET PO SCH (20:37)
[2021-10-18 00:24] VITALS: BP 149/90
[2021-10-18 00:26] VITALS: BP 159/76
[2021-10-18] MEDS: HYDROMORPHONE 1 MG INJ IVP PRN ×2 (01:40→09:48)
[2021-10-18 04:24] VITALS: BP 153/79
[2021-10-18] MEDS: INSULIN HUMULIN R 100 UNIT/ML 3ML SQ SCH ×4 (05:46→12:19)
[2021-10-18 08:00] VITALS: BP 152/91
[2021-10-18] MEDS ORDERED: GLIPIZIDE XL 5MG TAB PO SCH (08:00)
[2021-10-18] MEDS: CETIRIZINE HCL 5 MG TABLET PO SCH (09:39)
[2021-10-18] MEDS: PANTOPRAZOLE 40 MG/VIAL IV SCH (09:39)
[2021-10-18] MEDS: FOLIC ACID 1 MG TABLET PO SCH (09:39)
[2021-10-18] MEDS: MULTIVITAMIN TABLET PO SCH (09:40)
[2021-10-18] MEDS: METOPROLOL SUCCINATE 50 MG TAB.SR.24H PO SCH (09:40)
[2021-10-18] MEDS: CYANOCOBALAMIN (VITAMIN B-12) 1,000 MCG TABLET PO SCH (09:40)
[2021-10-18] MEDS: ENOXAPARIN SODIUM 40 MG/0.4 ML SYRINGE SQ SCH (09:41)
[2021-10-18 12:00] VITALS: BP 160/94
[2021-10-18] MEDS ORDERED: IOHEXOL 350 MG/ML 100ML INFUS..BTL IV ONE (15:58)
== END 2021-10-18 15:40 | disposition home or self-care (01) | DRG 563 ==
LOC: EDH 10:38 → OBSVTOIN 16:16 → EDHIP 16:16 → 3CH 20:09
PROVIDERS: ADMIT Internal Medicine Critical Care Medicine; ATTEND Internal Medicine Critical Care Medicine
DX: S43.401A Unspecified sprain of right shoulder joint, initial encounter (principal); E11.9 Type 2 diabetes mellitus without complications; I10 Essential (primary) hypertension; E78.00 Pure hypercholesterolemia, unspecified; D69.6 Thrombocytopenia, unspecified; E66.3 Overweight; Z68.28 Body mass index [BMI] 28.0-28.9, adult; I25.2 Old myocardial infarction; Z91.81 History of falling; Z95.0 Presence of cardiac pacemaker; Z86.711 Personal history of pulmonary embolism; Z86.718 Personal history of other venous thrombosis and embolism; Z79.84 Long term (current) use of oral hypoglycemic drugs; Z79.82 Long term (current) use of aspirin; Z79.899 Other long term (current) drug therapy; R07.9 Chest pain, unspecified
CPT/HCPCS: 36415; 71045; 72125; 73030; 80048; 80053; 80305; 82948; 83874; 83880; 84484; 85025; 85027; 85378; 85651; 93005; 97039; C9113; G0378; J1170; J1650; J1815; J2270; Q9967

== ENCOUNTER 2024-05-21 14:59 | Emergency (ER) | payer OTHER ==
[~2024-05-21] VITALS: Ht 172.7 cm; Wt 89.8 kg
[~2024-05-21 14:59] MED LIST changes: +APIX5TAB PO; +ASPI-1005 PO; -ASPI-556 PO; +ATOR10 PO; +CYAN25002 PO; +FOLI20CA PO; -ISOS30TA92 PO; +LINA145C PO; +METO50TA18 PO; +MULT-1367 PO; -NITR0.4T SL; +NITR0.4T50 SL; +SULF1TAB42 PO; +glucose tab PO
[2024-05-21 15:29] LABS: BASOPHILS # (AUTO) 0.05 K/uL (0.00-0.20); BASOPHILS % (AUTO) 0.9 % (0.0-5.0); EOSINOPHILS # (AUTO) 0.11 K/uL (0.00-0.70); EOSINOPHILS % (AUTO) 1.9 % (0.0-8.0); HEMATOCRIT 36.7 % (42-54); IMMATURE GRANULOCYTE ABSOLUTE 0.02 K/uL (0-1); LYMPHOCYTES # (AUTO) 1.6 K/uL (1.0-4.8); LYMPHOCYTES % (AUTO) 28.1 % (21.0-51.0); MEAN CORPUSCULAR HEMOGLOBIN 38.6 pg (27.0-33.0); MEAN CORPUSCULAR HGB CONC 36.5 g/dL (32.0-36.0); MEAN CORPUSCULAR VOLUME 105.8 fL (79-99); MONOCYTES # (AUTO) 0.3 K/uL (0.1-1.0); MONOCYTES % (AUTO) 5.8 % (3.0-13.0); NEUTROPHILS # (AUTO) 3.7 K/uL (1.8-7.7); PLATELET COUNT (AUTO) 548 K/uL (130-400); RED BLOOD CELL COUNT(AUTO) 3.47 MIL/uL (4.50-6.20); RED CELL DISTRIBUTION WIDTH 15.6 % (11.0-15.5); WHITE BLOOD COUNT (AUTO) 5.8 K/uL (4.8-10.8)
[2024-05-21 15:37] LABS: CREATININE 0.8 mg/dL (0.5-1.3); POTASSIUM 4.5 mmol/L (3.5-5.1)
[2024-05-21 15:42] LABS: ALBUMIN 3.6 g/dL (3.5-5.0); BILIRUBIN,TOTAL 0.9 mg/dL (0.2-1.0); TOTAL PROTEIN, SERUM 6.8 g/dL (6.0-8.3)
[2024-05-21] MEDS: 0.9%NACL 1000ML 1,000 ML IV ONE (18:43)
[2024-05-21] MEDS: INSULIN HUMULIN R 100 UNIT/ML 3ML IV ONE (19:02)
[2024-05-21] MEDS: ONDANSETRON 4MG INJ IVP ONE (19:03)
[2024-05-21] MEDS: ONDANSETRON 4MG INJ ONE (19:03)
[2024-05-21 21:14] VITALS: BP 118/70; PULSE 66; RESP 16; O2SAT 95
== END 2024-05-21 21:15 | disposition home or self-care (01) ==
LOC: EDH 14:59
DX: E11.65 Type 2 diabetes mellitus with hyperglycemia (principal); R42 Dizziness and giddiness; E11.36 Type 2 diabetes mellitus with diabetic cataract; E78.00 Pure hypercholesterolemia, unspecified; I10 Essential (primary) hypertension; I48.91 Unspecified atrial fibrillation; Z79.01 Long term (current) use of anticoagulants; Z79.2 Long term (current) use of antibiotics; Z79.82 Long term (current) use of aspirin; Z79.84 Long term (current) use of oral hypoglycemic drugs; Z79.899 Other long term (current) drug therapy; Z95.810 Presence of automatic (implantable) cardiac defibrillator
CPT/HCPCS: 99285; 96374; 71045; 96361; 96375; 84484; 80053; 85025; 82948; 36415; 93005 ×2; J1815; J7030; J2405